=== PATIENT | female | born 1970 | race Caucasian/White ===

== ENCOUNTER 2023-07-29 08:28 | Emergency (ER) | payer OTHER, SELFPAY ==
[2023-07-29 08:31] VITALS: BP 171/87; PULSE 74; RESP 16; TEMP 36.6; O2SAT 98; BMI 37.8
--- NOTE | 2023-07-29 08:54 | CT_ITS ---
STUDY: CT ABDOMEN AND PELVIS WITH CONTRAST - URINARY TRACT REASON FOR EXAM: Female, 52 years old. LUQ abdominal pain RADIATION DOSAGE (If Supplied By Facility): CTDIvol = ( 16.83 ) mGy, DLP = ( 1093.08 ) mGycm TECHNIQUE: IV 100mL Isovue-370 was administered. Transaxial images were obtained from the dome of the diaphragm to the symphysis pubis in the arterial, nephrographic and excretory phases. Multiplanar coronal and sagittal images were reformatted. Individualized Dose Optimization Techniques Were Used For This CT. COMPARISON: FINDINGS: The visualized lung bases are unremarkable. The visualized portions of the heart are within normal limits. Normal liver. Bladder mildly distended with small amount of pericholecystic fluid. Normal spleen. Normal pancreas. Normal bilateral adrenal glands. Normal visualized stomach. Normal small intestine. Mild sigmoid diverticulosis. No evidence of diverticulitis. The appendix is visualized and appears normal. Normal abdominal aorta. No retroperitoneal adenopathy. Normal right kidney. Normal left kidney. Normal urinary bladder. Normal abdominal wall. Normal osseous structures. CT/Abdomen/Pelvis W IV Cont ONLY IMPRESSION: Mildly distended gallbladder with small amount of pericholecystic fluid. Question acalculous cholecystitis. Mild sigmoid diverticulosis. Electronically Signed: Wade Cruz MD at 10:04 EDT ,
--- NOTE | 2023-07-29 08:55 | EDS_ITS ---
HPI HPI - GI History of Present Illness Chief Complaint: Abd Pain Narrative Narrative: 52-year-old female diagnosed with COVID-19 on Monday after what she thought was a sinus infection. This was 5 days ago, presents with left upper quadrant abdominal pain that began at 430 this morning, approximately 4-1/2 hours ago. She states it did not wake her from sleep but she had gone to the bathroom, and started having dull, constant, achy pain in her left upper quadrant. No exacerbating or alleviating factors. She denies any fevers or chills currently associated with this. No nausea or vomiting. She has had loose stool but no evidence of diarrhea. Of note, on Monday she had colonoscopy by Dr. Acevedo where 2 polyps were removed. She denies any rectal bleeding, no other symptoms. She is concerned mainly about the dull, achy pain in the left upper quadrant of her abdomen. PFSH PFSH Home Medications dicyclomine 20 mg tablet 20 mg PO TID PRN abdominal pain #20 tabs 07/29/23 [Rx Last Taken Unknown] ondansetron 4 mg disintegrating tablet 4 mg PO Q6H PRN nausea and vomiting #20 tabs 07/29/23 [Rx Last Taken Unknown] Allergy/AdvReac Type Severity Reaction Status Date / Time piroxicam [From Feldene] Allergy Intermediate NEEDS Verified 07/29/23 08:30 FOLLOW-UP clindamycin [From Cleocin] Allergy Mild SWELLING Verified 07/29/23 08:30 naproxen AdvReac Mild Upset Verified 07/29/23 08:30 Stomach Social History Smoking Status: Never smoker ROS ROS ED ROS Narrative Constitutional: No fever, no chills. HEENT: No sore throat. No neck pain. No loss of vision. Positive rhinorrhea and nasal congestion since Monday, 6 days ago. Recent diagnosis of COVID-19. Cardiovascular: No chest pain. No palpitations. No pedal edema. Respiratory: No cough, no shortness of breath. Abdominal: Left upper quadrant abdominal pain. No nausea. No vomiting. No diarrhea, positive loose stool. Genitourinary: No dysuria. No hematuria. Musculoskeletal: No myalgias. No arthralgias. Neurologic: No headaches. No dizziness. No lightheadedness. Skin: No rash. No change in color. Psychiatric: No depression. No anxiety. EXAM Physical Exam Const Vital Signs: 07/29/23 08:31 07/29/23 09:17 07/29/23 10:42 Temperature 97.8 F 98 F Temperature Source Temporal Oral Pulse Rate 74 78 80 Respiratory Rate 16 16 18 Blood Pressure 171/87 H 138/78 H 146/77 H Blood Pressure Mean 115 98 100 Pulse Ox 98 100 Oxygen Delivery Method Room Air Room Air 07/29/23 13:10 Temperature Temperature Source Pulse Rate 72 Respiratory Rate 16 Blood Pressure 148/69 H Blood Pressure Mean 95 Pulse Ox 96 Oxygen Delivery Method Room Air MDM MDM MDM Narrative Medical decision making narrative: In the left upper quadrant, concern would be for colitis versus diverticulitis versus splenic pathology. I have low suspicion for pulmonary embolism as she is PERC negative with a pulse of 74 and a pulse ox of 98% on room air. Laboratory work was obtained along with CT imaging. She states that she stopped having m enses in December of this year so I have low concern for . I reviewed the patient's laboratory work and she has normal white count 9.5, hemoglobin normal at 12.4, hematocrit 37.8, platelet count normal at 303. Her LFTs are grossly unremarkable with an AST of 18 and ALT of 26, alk phos 108. Electrolytes are grossly normal except for potassium of 3.3, BUN of 12 and creatinine 0.83. Lipase is normal at 40. Urinalysis negative for infection with 0-5 WBCs. I do not feel antibiotics are indicated. I reviewed the CT imaging, that the radiology report. While there is no reason for her left upper quadrant tenderness and pain, there was concern for pericholecystic fluid and possible acalculous cholecystitis. Upon repeat examination her abdomen remains soft and she has minimal tenderness in the right upper quadrant on palpation. I discussed patient with Dr. Grant through the OR nurse and he is requesting that ultrasound of the right upper quadrant/gallbladder be obtained for more detailed imaging. I reviewed the radiology report for the ultrasound and there is no evidence of pericholecystic fluid. There are small gallstones but it only takes up less than 10% of the lumen. Given her negative labs, negative ultrasound of the right upper quadrant for choledocholithiasis or cholecystitis, I do feel she can be discharged safely home with follow-up. I once again discussed the patient with Dr. Grant who agrees with outpatient follow-up as needed. She was having pain in the left upper quadrant which is the opposite side of the gallbladder as well. I wrote her prescriptions for Bentyl and Zofran for symptomatic treatment. She is to follow-up with her primary care provider. Return instructions to the emergency department were reviewed. I do not feel she requires observation at this time. Disposition is discharged home in stable condition. History & Record Review Discussion w/independent historian: Patient Additional record(s) reviewed:: Prior ED visit Lab Data Attestation: I reviewed the patient's lab results. Labs: Laboratory Results - last 24 hr 07/29/23 09:05 WBC 9.5 RBC 4.20 Hgb 12.4 Hct 37.8 MCV 90.0 MCH 29.5 MCHC 32.8 RDW Std Deviation 40.7 RDW Coeff of Heather 12.3 Plt Count 303 MPV 9.0 Immature Gran % (Auto) 0.300 Neut % (Auto) 82.1 H Lymph % (Auto) 13.5 L [place] % (Auto) 3.2 Eos % (Auto) 0.4 Baso % (Auto) 0.5 Absolute Neuts (auto) 7.8 H Absolute Lymphs (auto) 1.28 Nucleated RBC % 0 Sodium 136 Potassium 3.3 L Chloride 101 Carbon Dioxide 30.0 Anion Gap 5 BUN 12 Creatinine 0.83 Estim Creat Clear Calc 70.02 Est GFR (MDRD) Af Amer 93 Est GFR (MDRD) Non-Af 77 BUN/Creatinine Ratio 14.5 Glucose 123 H Calcium 9.3 Total Bilirubin 0.30 AST 18 ALT 26 Alkaline Phosphatase 108 Total Protein 7.6 Albumin 3.4 Globulin 4.2 Albumin/Globulin Ratio 0.8 L Lipase 40 Urine Color Yellow Urine Clarity Sl. Cloudy Urine pH 6.0 Ur Specific [place] 1.025 Urine Protein 30 H Urine Glucose (UA) Normal Urine Ketones 5 H Urine Occult Blood 25 H Urine Nitrite Negative Urine Bilirubin Negative Urine Urobilinogen 1 H Ur Leukocyte Esterase 100 H Urine RBC 0 SEEN Urine WBC 0-5 SEEN Ur Squamous Epith Cells 0-5 SEEN Calcium Oxalate Crystal 2+ Urine Bacteria 1+ Urine Mucus 0 SEEN Radiography Diagnostic Testing: Clinical Impression(s) from Imaging Studies Abdomen/Pelvis CT 07/29/23 08:54 IMPRESSION: Mildly distended gallbladder with small amount of pericholecystic fluid. Question acalculous cholecystitis. Mild sigmoid diverticulosis. Electronically Signed: Wade Cruz MD at 10:04 EDT , Gallbladder Ultrasound 07/29/23 11:17 IMPRESSION: 1. Cholelithiasis Electronically Signed: Que Mccabe MD at 14:10 EDT , Discharge Plan Triage Chief Complaint: Abd Pain ED Provider: Alvin Ma Dx/Rx/DC Orders Clinical Impression: Abdominal pain, LUQ, Gallstones, Nausea Instructions: What Are Gallstones, ED Abdominal Pain Unkn Cause Fem Prescriptions: New dicyclomine 20 mg tablet 20 mg PO TID PRN (Reason: abdominal pain) Qty: 20 0RF ondansetron 4 mg tablet,disintegrating 4 mg PO Q6H PRN (Reason: nausea and vomiting) Qty: 20 0RF Primary Care Provider: Care Physician,No Primary Referrals: Amrik Grant MD [Med Staff - Active Staff] - As Needed Care Physician,No Primary [Primary Care Provider] - Disposition Disposition: Home, Self Care
[2023-07-29 09:15] LABS: Mucous, Urine 0 SEEN /hpf (<or=2+); Red Blood Cells-Urine 0 SEEN /hpf (0-5)
[2023-07-29 09:17] VITALS: BP 138/78; PULSE 78; RESP 16; TEMP 36.6
[2023-07-29 09:18] LABS: Absolute Lymphocyte Count 1.28 X10^3/uL (0.83-4.51); Absolute Neutrophil Count 7.8 X10^3/uL (2.0-7.7); Basophil# 0.05 X10^3/uL; Basophil% 0.5 % (0-1); Eosinophil# 0.04 X10^3/uL; Eosinophils% 0.4 % (0-5); Hematocrit 37.8 % (37-47); Hemoglobin 12.4 g/dL (12.0-15.0); Lymphocyte # 1.28 X10^3/ul (0.83-4.51); Lymphocyte % 13.5 % (19-41); Mean Corp Hgb Conc 32.8 g/dL (32-36); Mean Corpuscular Hgb 29.5 pg (27.0-32.0); Monocyte% 3.2 % (0-10); NRBC Flagged by Analyzer 0 % (0-5); Neutrophil % 82.1 % (47-70); Platelet Count 303 K/mm3 (150-450); RBC Distribution Width CV 12.3 % (11.6-14.6); RBC Distribution Width SD 40.7 fl (35.1-43.9); White Blood Count 9.5 K/mm3 (4.4-11.0)
[2023-07-29] MEDS: 0.9% Normal Saline 1,000 ML 1000 ML IV (09:19)
[2023-07-29 09:33] LABS: ALB/GLOB Ratio 0.8 RATIO (0.9-2.4); AST(SGOT) 18 U/L (15-37); Alanine Aminotransfer ALT/SGPT 26 U/L (13-56); Albumin, Serum 3.4 g/dL (3.2-5.0); Alkaline Phosphatase 108 U/L (45-117); Anion Gap 5 (5-15); BUN 12 mg/dL (7-18); BUN/Creat Ratio 14.5 RATIO (10-20); Calcium,Total 9.3 mg/dL (8.5-10.1); Chloride 101 mmol/L (98-107); Creatinine, Serum 0.83 mg/dL (0.55-1.02); EST Glomerular Filtration Rate 77 mL/min (>60); Est Glom Filt Rate - Afr Amer 93 mL/min (>60); Estimated Creatinine Clearance 70.02 ml/min; Globulin 4.2 g/dL (2.2-4.2); Glucose 123 mg/dL (74-106); Lipase 40 U/L (13-75); Potassium 3.3 mmol/L (3.5-5.1); Protein, Total 7.6 g/dL (6.4-8.2); Sodium Level 136 mmol/L (136-145)
[2023-07-29 09:37] LABS: Color, Urine Yellow (Yellow); Glucose, Dipstick Normal (Normal); Ketone-Dipstick 5 mg/dl (Negative); Leukocyte Esterase-Dipstick 100 /ul (Negative); Nitrite-Dipstick Negative (Negative); Occult Blood-Urine 25 /ul (Negative); Protein-Dipstick 30 mg/dl (Negative); Specific Gravity, Urine 1.025 (1.002-1.030); Urine Bilirubin Dipstick Negative (Negative); Urine Clarity Sl. Cloudy (Clear); Urine Urobilinogen 1 mg/dl (Normal)
[2023-07-29 09:46] LABS: Bacteria 1+ /hpf (None Seen); Calcium Oxalate Crystals Ur 2+ /hpf (<or=2+); Squamous Epithelial Cells - UA 0-5 SEEN /hpf (5-10); White Blood Cells 0-5 SEEN /hpf (0-5)
[2023-07-29] MEDS: Potassium Chloride Oral Tablet 20 MEQ 40 MEQ PO (09:53)
[2023-07-29 10:42] VITALS: BP 146/77; PULSE 80; RESP 18; O2SAT 100
--- NOTE | 2023-07-29 11:17 | US_ITS ---
STUDY: ABDOMINAL ULTRASOUND - RIGHT UPPER QUADRANT REASON FOR VISIT: Female, 52 years old RUQ pain TECHNIQUE: Ultrasound evaluation of the right upper quadrant was performed with real-time and static tao-scale imaging. TECHNICAL QUALITY: Adequate. COMPARISON: CT of abdomen and pelvis dated July 29, 2023. FINDINGS: Liver: The liver is mildly enlarged measuring 20.6 cm. There is increased echogenicity consistent with fatty infiltration. The bile ducts are within normal limits. There is hepatic color flow. The direction of portal flow is hepatopetal. There is no demonstrated mass lesion. Gallbladder: Normal distended gallbladder. The gallbladder wall measures 2.8 mm. Multiple small gallstones are present in the gallbladder lumen occupying less than 10% of the lumen volume. No pericholecystic fluid is seen. Common Bile Duct (C.B.D.): The common bile duct measures 3.3 mm. Pancreas: Normal size of the head, body and tail of the pancreas. There is normal echogenicity of the pancreas. There is no demonstrated pancreatic mass or cyst. Right Kidney: Normal size of the right kidney. The right kidney measures 13.2 x 5.7 cm. Normal renal cortex. There is no demonstrated renal mass or cyst. There is no right hydronephrosis. US/Gallbladder IMPRESSION: 1. Cholelithiasis Electronically Signed: Que Mccabe MD at 14:10 EDT ,
[2023-07-29 13:10] VITALS: BP 148/69; PULSE 72; RESP 16; O2SAT 96
[2023-07-29 14:34] VITALS: BP 137/69; PULSE 72; RESP 15; O2SAT 97
== END 2023-07-29 14:34 | disposition home or self-care (01) ==
PROVIDERS: Emergency Provider Emergency Medicine; Visit Provider Emergency Medicine
DX: K80.20 Calculus of gallbladder without cholecystitis without obstruction (principal); K57.30 Diverticulosis of large intestine without perforation or abscess without bleeding
CPT/HCPCS: 74177; 76705; 80053; 81001; 83690; 85025; 96360; 99283; Q9967; A4216

== ENCOUNTER 2024-03-02 13:50 | Emergency (ER) | payer OTHER, SELFPAY ==
[2024-03-02 13:51] VITALS: BP 160/87; PULSE 80; RESP 16; TEMP 36.6; O2SAT 100; BMI 40.0
--- NOTE | 2024-03-02 14:07 | EKG12_ITS ---
Test Reason : ABD PAIN Blood Pressure : / mmHG Vent. Rate : 075 BPM Atrial Rate : 075 BPM P-R Int : 130 ms QRS Dur : 074 ms QT Int : 384 ms P-R-T Axes : 035 036 040 degrees QTc Int : 428 ms Normal sinus rhythm Normal ECG Confirmed by Amrik Padilla ([id number]), advertising editor PARKER PANDEY ([id number]) on 03/04/2024 10:52:46 AM Referred By: RU Confirmed By:Amrik Padilla
--- NOTE | 2024-03-02 14:08 | EDS_ITS ---
HPI HPI - GI History of Present Illness Chief Complaint: Abd Pain Detail of Chief Complaint: Abdominal pain Informant: patient Narrative Narrative: Patient presents to the emergency room with complaint of abdominal pain that started around 4:30 AM. Pain has been continuous and came on gradually. She denies vomiting. She denies nausea. She denies blood in her stool or black tarry stool. She denies fevers. She denies urinary symptoms. Denies chest pain or shortness of breath. She thinks this may be a gallbladder attack as initially she had some pain in her back 2. Prior history of tubal ligation. She has history of hypertension. Patient did eat eggs and some toast today and did not really seem to make her pain worse. Currently rates her pain an 8 out of 10. PFSH PFSH Home Medications dicyclomine 20 mg tablet 20 mg PO TID PRN abdominal pain #20 tabs 07/29/23 [Rx Last Taken Unknown] ondansetron 4 mg disintegrating tablet 4 mg PO Q6H PRN nausea and vomiting #20 tabs 07/29/23 [Rx Last Taken Unknown] hydrocodone-acetaminophen 5-325mg 5mg-325mg 1 tab PO Q4H PRN PRN Pain 2 days #10 TABLETS 03/02/24 [Rx Last Taken Unknown] lansoprazole 30 mg capsule,delayed release (Prevacid) 30 mg PO DAILY 4 weeks #14 caps 03/02/24 [Rx Last Taken Unknown] Allergy/AdvReac Type Severity Reaction Status Date / Time piroxicam [From Feldene] Allergy Intermediate NEEDS Verified 03/02/24 13:50 FOLLOW-UP clindamycin [From Cleocin] Allergy Mild SWELLING Verified 03/02/24 13:50 naproxen AdvReac Mild Upset Verified 03/02/24 13:50 Stomach Social History Smoking Status: Never smoker ROS ROS ED Review of Systems ROS Unobtainable: other Constitutional Constitutional ED: Reports lethargy; Denies chills, fever(s), sweats or weight loss Eyes Eyes: Denies blurry vision, change in vision or diplopia ENT ENT ED: Denies rhinorrhea or sore throat Cardiovascular Cardiovascular: Denies chest pain, orthopnea or racing heartbeat Respiratory/Chest Respiratory/Chest: Denies cough, dyspnea, dyspnea on exertion, orthopnea or sputum Gastrointestinal Gastrointestinal: Reports abdominal pain; Denies diarrhea, nausea or vomiting Genitourinary Genitourinary ED: Denies dysuria, hematuria or urinary frequency Musculoskeletal Musculoskeletal: Denies arthralgias, back pain, myalgias or neck pain Integumentary Denies abscess, Abrasions or rash Neurologic Neurologic: Denies headache(s) or weakness Psychiatric Psychiatric: Denies anxiety, depression or suicidal thoughts Endocrine Endocrinology: Denies polydipsia, polyphagia or polyuria Hematologic/Lymphatic Hematologic/Lymphatic: Denies easy bleeding, easy bruising or lymphadenopathy Allergic/Immunologic Allergic/Immunologic ED: Denies mouth swelling, tongue swelling or urticaria EXAM Physical Exam Const Vital Signs: 03/02/24 13:51 Temperature 97.9 F Temperature Source Temporal Pulse Rate 80 Respiratory Rate 16 Blood Pressure 160/87 H Blood Pressure Mean 111 Pulse Ox 100 Oxygen Delivery Method Room Air Positive well nourished and well developed General Appearance ED: well developed and NAD HEENT Reports TM's clear and moist mucous membranes normocephalic and atraumatic; Negative for trauma or tenderness Tympanic Membrane ED: Yes TM's clear Eyes PERRL and EOMs intact bilaterally General Eye ED: Negative for pale conjunctiva or scleral icterus Neck no lymphadenopathy, supple and no JVD General: Negative for tenderness Chest Wall inspection of chest normal and palpation of chest normal Chest: Negative for tenderness Resp normal respiratory effort and clear to auscultation bilaterally Effort and Inspection: Negative for respiratory distress or pain with movement Auscultation: Negative for rhonchi, wheezes or diminished lung sounds Cardio regular rate, regular rhythm, S1 normal heart sound, S2 normal heart sound and no murmurs Peripheral Pulses: pulses 2+ throughout GI normal to inspection, nondistended, normoactive bowel sounds, soft to palpation, non-distended and no masses GI Narrative: Tenderness palpation over the epigastric region that is mild. No tenderness over the right upper quadrant. Negative Stark sign. No tenderness over the lower abdomen on exam. No rebound, rigidity, or perennial signs. No masses palpated. Back/Spine no CVA tenderness and no thoracic nor lumbar tenderness Extremity normal to inspection General Extremety ED: Negative for edema General Extremity: Negative for edema Neuro oriented x3, CN's II-XII intact bilaterally, no sensory deficits noted and gait normal Sensorium / Orientation: awake, alert, oriented to person, oriented to place and oriented to time Motor Exam: strength 5/5 throughout and strength abnormal Psych mental status grossly normal Skin no rashes or lesions noted and no wounds MDM MDM MDM Narrative Medical decision making narrative: Patient presents with upper abdominal pain started this morning. Pains been continuous. She has had no fever or vomiting. Food did not seem to make it worse. In the differential would be gallbladder disease versus peptic ulcer disease versus bowel perforation or other acute intra-abdominal process such as bowel obstruction. IV line established. Initially she denied anything for pain. CBC with differential patient with slightly elevated white count at 12.2 with hemoglobin 13.5 and platelet count of 294. Chemistry is unremarkable. LFTs were normal. EKG obtained arrival shows sinus rhythm with ventricular rate of 75 bpm with no acute ST segment changes. Troponin was normal at 5. CT scan of the abdomen pelvis obtained with IV contrast showed gallstones otherwise normal appendix and no other acute abnormality. I did give her a GI cocktail which she does not think helped very much. At this point etiology of her abdominal pain unclear. She really has no pain over the gallbladder and I do not think this is biliary colic. Recommended follow-up with surgeon on-call. Will send home with prescription for Prevacid and a few [place] for pain. She is advised to return if worsening pain, fever, vomiting, or condition worsening way. Lab Data Attestation: I reviewed the patient's lab results. Labs: Laboratory Results - last 24 hr 03/02/24 15:00 WBC 12.2 H RBC 4.52 Hgb 13.5 Hct 39.8 MCV 88.1 MCH 29.9 MCHC 33.9 RDW Std Deviation 38.8 RDW Coeff of [place] 12.2 Plt Count 294 MPV 9.0 Immature Gran % (Auto) 0.700 Neut % (Auto) 78.8 H Lymph % (Auto) 14.8 L [place] % (Auto) 4.8 Eos % (Auto) 0.5 Baso % (Auto) 0.4 Absolute Neuts (auto) 9.6 H Absolute Lymphs (auto) 1.80 Nucleated RBC % 0 Sodium 135 L Potassium 3.5 Chloride 102 Carbon Dioxide 24.0 Anion Gap 9 BUN 16 Creatinine 0.71 Estim Creat Clear Calc 111.20 Est GFR (MDRD) Af Amer 112 Est GFR (MDRD) Non-Af 92 BUN/Creatinine Ratio 22.5 H Glucose 94 Lactic Acid 1.6 Calcium 9.1 Total Bilirubin 0.40 AST 17 ALT 26 Alkaline Phosphatase 139 H Troponin I High Sens 5 Total Protein 8.1 Albumin 3.8 Globulin 4.3 H Albumin/Globulin Ratio 0.9 Lipase 35 Radiography Diagnostic Testing: Clinical Impression(s) from Imaging Studies Abdomen/Pelvis CT 03/02/24 14:08 IMPRESSION: (NOT LISTED IN ORDER OF SIGNIFICANCE) There are multiple colonic diverticula consistent with diverticulosis. There are multiple gallstones. Other findings as above. Electronically Signed: Pako Jackson MD at 15:04 EDT , EKG Initial EKG: Attestation: I personally reviewed and interpreted this EKG as follows: Comments: Sinus rhythm with rate of 75 bpm with no acute ST segment changes Discharge Plan Triage Chief Complaint: Abd Pain ED Provider: Arielle Braun Dx/Rx/DC Orders Clinical Impression: Abdominal pain Instructions: ED Abdominal Pain Unkn Cause Fem Prescriptions: New lansoprazole [Prevacid] 30 mg capsule,delayed release(DR/EC) 30 mg PO DAILY 28 Days Qty: 14 0RF hydrocodone-acetaminophen [hydrocodone-acetaminophen] 5-325 mg tablet 1 tab PO Q4H PRN PRN (Reason: Pain) 2 Days Qty: 10 0RF No Action dicyclomine 20 mg tablet 20 mg PO TID PRN (Reason: abdominal pain) Qty: 20 0RF ondansetron 4 mg tablet,disintegrating 4 mg PO Q6H PRN (Reason: nausea and vomiting) Qty: 20 0RF Primary Care Provider: Wade Gonzales Referrals: Amrik Grant MD [Med Staff - Active Staff] - 3-5 Days Wade Gonzales MD [Primary Care Provider] - Disposition Disposition: Home, Self Care
--- NOTE | 2024-03-02 14:08 | CT_ITS ---
STUDY: CT Abdomen And Pelvis W/ Contrast Injection 03/02/2024 3:01 PM REASON FOR EXAM: Female, 53 years old. ABDOMINAL PAIN upper abdominal pain TECHNIQUE: Transaxial images were obtained without oral contrast, and IV 100mL Isovue-370 intravenous contrast. Individualized dose optimization techniques were used for this CT. COMPARISON: 07.29.23 FINDINGS: The visualized lung bases are unremarkable. The visualized portions of the heart are within normal limits. Unremarkable liver. Hyperdense gallbladder may suggest multiple gallstones. Unremarkable spleen. Unremarkable pancreas. Unremarkable bilateral adrenal glands. No acute findings of the right kidney. No acute findings of the left kidney. Unremarkable visualized stomach. Unremarkable small intestine. There are multiple colonic diverticula consistent with diverticulosis. The appendix is visualized and appears unremarkable. There are no acute findings of the abdominal aorta. Unremarkable inferior vena cava. Subcentimeter mesenteric lymph nodes. Unremarkable urinary bladder. Normal visualized uterus. There are bilateral tubal ligation clips. There is an umbilical hernia containing fat. There are diffuse degenerative changes of the visualized lumbar spine. There is bilateral neural foraminal stenosis at L4-5 and L5-S1. CT/Abdomen/Pelvis W IV Cont ONLY IMPRESSION: (NOT LISTED IN ORDER OF SIGNIFICANCE) There are multiple colonic diverticula consistent with diverticulosis. There are multiple gallstones. Other findings as above. Electronically Signed: Pako Jackson MD at 15:04 EDT ,
[2024-03-02] MEDS: 0.9% Normal Saline (1000mL) 1,000 ML 125 ML IV (15:00)
[2024-03-02 15:04] LABS: Absolute Neutrophil Count 9.6 X10^3/uL (2.0-7.7); Basophil# 0.05 X10^3/uL; Basophil% 0.4 % (0-1); Eosinophil# 0.06 X10^3/uL; Eosinophils% 0.5 % (0-5); Hematocrit 39.8 % (37-47); Hemoglobin 13.5 g/dL (12.0-15.0); Lymphocyte % 14.8 % (19-41); Mean Corp Hgb Conc 33.9 g/dL (32-36); Mean Corpuscular Hgb 29.9 pg (27.0-32.0); Mean Corpuscular Volume 88.1 fL (81-99); Monocyte# 0.58 X10^3/uL; Monocyte% 4.8 % (0-10); NRBC Flagged by Analyzer 0 % (0-5); Neutrophil # 9.62 X10^3/uL (2.7-7.7); Neutrophil % 78.8 % (47-70); Platelet Count 294 K/mm3 (150-450); RBC Distribution Width CV 12.2 % (11.6-14.6); RBC Distribution Width SD 38.8 fl (35.1-43.9); Red Blood Count 4.52 M/mm3 (4.2-5.4); White Blood Count 12.2 K/mm3 (4.4-11.0)
[2024-03-02] MEDS: Mag Hydrox/Al Hydrox/Simeth 30 ML UDC PO (15:16)
[2024-03-02 15:31] LABS: ALB/GLOB Ratio 0.9 RATIO (0.9-2.4); AST(SGOT) 17 U/L (15-37); Alanine Aminotransfer ALT/SGPT 26 U/L (13-56); Albumin, Serum 3.8 g/dL (3.2-5.0); Alkaline Phosphatase 139 U/L (45-117); Anion Gap 9 (5-15); BUN 16 mg/dL (7-18); BUN/Creat Ratio 22.5 RATIO (10-20); Calcium,Total 9.1 mg/dL (8.5-10.1); Chloride 102 mmol/L (98-107); Creatinine, Serum 0.71 mg/dL (0.55-1.02); EST Glomerular Filtration Rate 92 mL/min (>60); Est Glom Filt Rate - Afr Amer 112 mL/min (>60); Globulin 4.3 g/dL (2.2-4.2); Glucose 94 mg/dL (74-106); Lipase 35 U/L (13-75); Potassium 3.5 mmol/L (3.5-5.1); Protein, Total 8.1 g/dL (6.4-8.2); Sodium Level 135 mmol/L (136-145); Troponin-I HS 5 pg/mL (3.0-54.0)
[2024-03-02 15:33] LABS: Lactic Acid 1.6 mmol/L (0.4-1.9)
[2024-03-02 16:02] VITALS: BP 158/74; PULSE 87; RESP 16; O2SAT 97
== END 2024-03-02 16:04 | disposition home or self-care (01) ==
PROVIDERS: Emergency Provider Emergency Medicine; PCP Family Medicine; Visit Provider Emergency Medicine
DX: R10.10 Upper abdominal pain, unspecified (principal); K80.20 Calculus of gallbladder without cholecystitis without obstruction; I10 Essential (primary) hypertension; K57.30 Diverticulosis of large intestine without perforation or abscess without bleeding; Z79.899 Other long term (current) drug therapy
CPT/HCPCS: 74177; 80053; 83605; 83690; 84484; 85025; 93005; 96360; 99283; J7030; Q9967; A4216